=== PATIENT | male | born 1935 | race Caucasian/White ===

== ENCOUNTER → 2017-09-26 | Outpatient (CLI) | payer OTHER ==
[~2017-09-26] MED LIST: ALBUAER19 INH; ALLO300T2 PO; ASPI81TA25 PO; ATOR-24 PO; BICA50TA6 PO; FINA5TAB4 PO; FLUT220A INH; LEVO112T4 PO; METF500T PO; MULT-188 PO; OMEP20TA PO; PRED10TA PO; SENNTAB23 PO; TRIATAB3 PO
--- NOTE | 2017-09-26 16:21 | DIAGNOSTIC IMAGING REPORT ---
TWO VIEW CHEST CLINICAL HISTORY: Asthma exacerbation. FINDINGS: PA and lateral chest radiographs are compared to study dated 09/18/2015. The heart is enlarged and there is atherosclerotic calcification of the thoracic aorta. The pulmonary vasculature is noncongested. Streaky airspace opacities are present the left lung base. The lungs are otherwise clear. No large pleural effusion or pneumothorax is seen. The skeletal structures are osteopenic. Degenerative change is present throughout the thoracic spine. There are healed left-sided rib fractures. IMPRESSION: 1. There are linear/streaky airspace opacities at the left lung base. This could represent atelectasis and/or pneumonia. Clinical correlation will be required. 2. The right lung appears clear. 3. Cardiomegaly without radiographic evidence of congestive failure. Electronically signed by: Ross Beckett M.D. 09/26/2017 4:20 PM Dictated Date/Time: 09/26/2017 4:19 PM
== END | disposition home or self-care (01) ==
LOC: C.RAD1850 15:50
PROVIDERS: ATTEND Internal Medicine Pulmonary Disease
DX: J45.901 Unspecified asthma with (acute) exacerbation (principal); R91.8 Other nonspecific abnormal finding of lung field; I51.7 Cardiomegaly

== ENCOUNTER → 2017-10-03 | Outpatient (CLI) | payer OTHER ==
--- NOTE | 2017-10-03 16:09 | DIAGNOSTIC IMAGING REPORT ---
CHEST 2 VIEWS ROUTINE CLINICAL HISTORY: Asthma exacerbation. COMPARISON STUDY: Chest radiograph September 26, 2017. FINDINGS: Lung volumes are normal. No pneumothorax or pleural effusion is present. Linear left basilar opacity suggests atelectasis or scarring. There is no consolidation to suggest pneumonia. Cardiomediastinal silhouette is stable and there is no evidence of pulmonary edema. IMPRESSION: 1. No acute cardiopulmonary findings. 2. Linear left basilar opacity suggestive of atelectasis or scarring. Electronically signed by: Alexander Murphy M.D. 10/03/2017 4:08 PM Dictated Date/Time: 10/03/2017 4:06 PM
== END | disposition home or self-care (01) ==
LOC: C.RAD1850 15:43
PROVIDERS: ATTEND Internal Medicine Pulmonary Disease
DX: J45.901 Unspecified asthma with (acute) exacerbation (principal); R91.8 Other nonspecific abnormal finding of lung field